=== PATIENT | female | born 1950 | race Caucasian/White ===

== ENCOUNTER → 2018-12-05 15:31 | Outpatient (CLI) | payer MEDICARE, OTHER, SELFPAY ==
[2018-12-05 18:08] LABS: Creatine Kinase 46 U/L (26-192)
== END ==
PROVIDERS: Visit Provider Emergency Medicine
DX: E78.5 Hyperlipidemia, unspecified (principal); E11.9 Type 2 diabetes mellitus without complications
CPT/HCPCS: 36415; 82550; 83036

== ENCOUNTER 2019-10-06 09:57 | Outpatient (RCR) | payer MEDICARE, OTHER, SELFPAY | END 2019-10-06 09:59 | disposition home or self-care (01) | LOC: PT 09:57 | DX: J44.1 Chronic obstructive pulmonary disease with (acute) exacerbation (principal); J96.21 Acute and chronic respiratory failure with hypoxia; Z72.0 Tobacco use | CPT/HCPCS: G0424 ==

== ENCOUNTER → 2020-06-14 07:57 | Outpatient (POV) | payer MEDICARE, OTHER, SELFPAY | PROVIDERS: PCP Emergency Medicine; Visit Provider Dermatology | DX: Z00.00 Encounter for general adult medical examination without abnormal findings (principal) ==

== ENCOUNTER → 2020-06-17 11:31 | Outpatient (CLI) | payer MEDICARE, OTHER, SELFPAY ==
[2020-06-17 11:42] LABS: Microscopic, Urine URINE MICROSCOPIC (MICROSCOPIC)
[2020-06-17 12:04] LABS: Basophils # 0.1 K/mm3 (0-0.2); Basophils % 0.9 % (0.1-2.0); Eosinophils # 0.2 K/mm3 (0.0-0.4); Eosinophils % 3.5 % (0.1-12.0); Hematocrit 44.9 % (37.0-47.0); Lymphocytes # 1.7 K/mm3 (0.7-4.5); Lymphocytes % 25.3 % (10-50); Mean Corpuscular HGB Conc 33.5 g/dL (31.8-35.4); Mean Corpuscular Hemoglobin 30.4 pg (27.0-31.2); Mean Corpuscular Volume 90.6 fl (81-99); Monocytes # 0.4 K/mm3 (0.1-1.0); Monocytes % 5.6 % (1.7-9.3); Neutrophils # 4.3 K/mm3 (1.8-7.8); Neutrophils % 64.7 % (37.0-80.0); Platelet Count 220 K/mm3 (142-424); Red Blood Count 4.95 M/mm3 (4.20-5.40); Red Cell Distribution Width 13.1 % (11.5-17.5); White Blood Count 6.6 K/mm3 (4.8-10.8)
[2020-06-17 12:41] LABS: Appearance,Urine CLEAR (Clear); Bilirubin,Urine Negative (Negative); Blood, Urine 1+ (Negative); Color,Urine YELLOW (Yellow); Glucose,Urine (UA) Negative (Negative); Ketones,Urine Negative (Negative); Leukocyte Esterase,Urine Negative (Negative); Nitrate,Urine Negative (Negative); Protein,Urine Negative (Negative); Urobilinogen,Urine 0.2 EU/dl (0.2)
[2020-06-17 13:07] LABS: Bacteria,Urine Trace /lpf
[2020-06-17 15:16] LABS: Albumin Level 4.3 g/dl (3.5-5.0); Anion Gap 10.6 mEq/L (5-15); Blood Urea Nitrogen 18 mg/dl (7-17); Calcium 9.8 mg/dl (8.4-10.2); Carbon Dioxide 33 mmol/L (22.0-30.0); Chloride 99 mmol/L (98-107); Estimated Glomerular Filt Rate 55 ml/min (>60); GFR (African American) 67 ML/MIN (>60); Glucose 143 mg/dl (74-100); Iron 102 ug/dL (37-170); Phosphorous 4.4 mg/dl (2.5-4.5); Potassium 4.6 mmoL/L (3.5-5.1); Sodium 138 mmol/L (136-145)
[2020-06-17 19:04] LABS: Creatinine,Urine Random 47 mg/dL (Not Estab.)
[2020-06-17 20:05] LABS: Total Iron Binding Capacity 386 ug/dL (265-497)
[2020-06-17 20:49] LABS: Ferritin 30.9 ng/ml (11.1-264)
== END ==
PROVIDERS: Visit Provider Student in an Organized Health Care Education/Training Program
DX: N28.9 Disorder of kidney and ureter, unspecified (principal); Z86.010 Personal history of colon polyps
CPT/HCPCS: 36415; 80069; 81001; 82043; 82570; 82728; 83540; 83550; 85025

== ENCOUNTER → 2020-07-12 08:32 | Outpatient (POV) | payer MEDICARE, OTHER, SELFPAY | PROVIDERS: Visit Provider Dermatology | DX: Z00.00 Encounter for general adult medical examination without abnormal findings (principal) ==

== ENCOUNTER → 2021-02-14 08:55 | Outpatient (POV) | payer MEDICARE, OTHER, SELFPAY | PROVIDERS: Visit Provider Dermatology | DX: Z00.00 Encounter for general adult medical examination without abnormal findings (principal) ==

== ENCOUNTER 2021-06-17 14:09 | Emergency (ER) | payer MEDICARE, OTHER, SELFPAY ==
[2021-06-17] VITALS (23 sets, daily range): BP systolic 000–119; BP diastolic 00–60; PULSE 0–83; RESP 0–18; TEMP -17.7–36.6; O2SAT 0–100; BMI 25.1
--- NOTE | 2021-06-17 13:47 | PC.NURSE ---
EMS was called out for an unwitnessed arrest at 1302 after patient's found patient not breathing. Patient initiated CPR at 1032. EMS reports they arrived at 1320 and initiated ACLS. EMS gave two rounds of epinephrine enroute and got ROSC at 1342. Patient arrived with [facility] with ROSC present. Patient has IO present in left tibia. Patient has 7.0 ET tube present with [address] De La Rosa at bedside. Pulse check at 1350 with no pulse palpable, CPR initiated at 1350. Epinephrine given at 1351, Bicarb given at 1352. Pulse check at 1354 and ROSC present. Another amp of bicarb given at 1402, another amp of epinephrine given at 1403. Epinephrine drip started at 1406 per MD verbal order. Dopamine drip started at 1414 per MD verbal order. MD left bedside at 1414
--- NOTE | 2021-06-17 14:12 | XR_ITS ---
PROCEDURE INFORMATION: Exam: XR Chest Exam date and time: 06/17/2021 2:12 PM Age: 70 years old Clinical indication: Device placement; Ett placement (vent status); Additional info: Tube placement TECHNIQUE: Imaging protocol: XR of the chest. Views: 1 view. COMPARISON: CR CXR CHEST(2 VIEWS-NOT PORTABLE) 11/30/2016 1:27 PM FINDINGS: Tubes, catheters and devices: Endotracheal tube is present with the tip approximately 5.6 cm above the level of the jose raul. Lungs: Interstitial prominence is noted bilaterally with atelectatic and/or early infiltrative changes in the right lung base. The lungs are hyperinflated, consistent with underlying small airways disease. Pleural spaces: There is no evidence of pneumothorax. Heart/Mediastinum: The heart demonstrates mild diffuse enlargement. Vasculature: The vasculature demonstrates diffuse moderate atherosclerotic calcification. Bones/joints: The thoracic spine demonstrates mild degenerative changes at multiple levels. IMPRESSION: 1. Endotracheal tube is present with the tip approximately 5.6 cm above the level of the jose raul. 2. Interstitial prominence is noted bilaterally with atelectatic and/or early infiltrative changes in the right lung base. 3. The lungs are hyperinflated, consistent with underlying small airways disease. 4. The heart demonstrates mild diffuse enlargement.
--- NOTE | 2021-06-17 14:23 | ECG_ITS ---
APPROVED REPORT Exam: Resting ECG HR:59 bpm ECG Measurements Heart Rate 59 AXES WY 80 P 260 QRSd 94 QRS 96 QT 508 T 145 QTc 502 Conclusion Unusual P axis and short WY, probable junctional rhythm Rightward axis ST & Marked T wave abnormality, consider anterolateral ischemia Prolonged QT Abnormal ECG Electronically signed by : Patricio Bear, 06/18/2021 08:24:47
[2021-06-17 14:24] LABS: ABG Base Excess -3.3 mmol/L (-2.4-2.3); ABG HCO3 25.6 mmhg (22.0-26.0); ABG Oxygen Saturation 100 % (90-100); ABG PO2 431.4 mmhg (80-100); ABG TCO2 27.9 mmhg (23-27)
[2021-06-17 14:28] LABS: Basophils # 0.1 K/mm3 (0-0.2); Basophils % 0.4 % (0.1-2.0); Eosinophils # 0.1 K/mm3 (0.0-0.4); Eosinophils % 0.4 % (0.1-12.0); Hematocrit 39.7 % (37.0-47.0); Hemoglobin 11.8 g/dL (12.2-16.2); Lymphocytes # 1.9 K/mm3 (0.7-4.5); Lymphocytes % 9.8 % (10-50); Mean Corpuscular HGB Conc 29.8 g/dL (31.8-35.4); Mean Corpuscular Hemoglobin 28.6 pg (27.0-31.2); Mean Corpuscular Volume 95.8 fl (81-99); Mean Platelet Volume 10.8 fl (7.4-10.4); Monocytes # 0.3 K/mm3 (0.1-1.0); Monocytes % 1.7 % (1.7-9.3); Neutrophils # 16.7 K/mm3 (1.8-7.8); Neutrophils % 87.7 % (37.0-80.0); Platelet Count 230 K/mm3 (142-424); Red Blood Count 4.14 M/mm3 (4.20-5.40); Red Cell Distribution Width 14.3 % (11.5-17.5)
[2021-06-17 14:29] LABS: MANUAL DIFFERENTIAL MANUAL DIFFERENTIAL (MANUAL DIFF)
--- NOTE | 2021-06-17 14:29 | [facility].EDCPR ---
ED Disposition Clinical Impression: Cardiac arrest Disposition: Condition on Discharge: Referrals: Provider,Referral, [Primary Care Provider] - - Critical Care Critical Care Time: Yes Attestation: On , the high probability of a clinically significant, sudden or life threatening deterioration of the following system(s) required my full and direct attention, intervention and personal management. The time I documented below is in addition to time spent performing reported procedures but includes the following listed in this critical care notation. Vital system(s) involved:: Circulatory Failure My critical care processes included: Assessment & monitoring of V/S, Initial and Re-exams, Data Review/Interpretation, Coordinating Care, Medication Orders and management, Documentation Probable Cause of : Cardiac arrest (CHF. COPD. acute NC) [facility] Code Documentation - Arrest Information Outside of Hospital The Code Document Section documentation for [id number] SouravKasandra Laura was populated with data that defaulted in from the mock up builder in the Code Assessment on f_Reg Service Date] to provide within this report, the status and treatment of the patient in the ED during a Code. This documentation will be supplemented with my direct findings within the body of the report. Medical Decision Making - Medical Records MR Comment: Patient was found unresponsive at 1302. EMS was called. started CPR. She had CPR for about 30 minutes. On arrival to the ED she has dilated pupils, she has no corneal response, no Babinski, no response to painful stimulation or any kind of stimulation. I discussed the situation with the family and they understood the situation. I called Dr. Martinez the hospitalist senior international tax manager and discussed the case with him, he thinks it was futile to admit her. The family agreed to wait till 6 PM if there is no response will extubate the patient. This scenario was discussed with the patient's and her son. At 5.40 pm. I repeated the neurological exam at the presence of her and son and the nurse. there was response to pain, stimulation, pupils are dilated and non responsive, corneal reflex is not active, babinsky is negative, explained that to the family, they wanted to withdraw the life support. Family signed the papers to withdraw life support. After prolonged discuscussion and answering all the questions. Life support withdrawed at 17.45. Patient at 18.11 due to cardiac arrest.acute NC. - Amador Inquiry Pt receiving controlled substance: No Amador was queried for this patient: No Vital Signs: 06/17/21 14:10 06/17/21 14:22 06/17/21 14:25 Temperature Temperature Source Pulse Rate 59 L 58 L Respiratory Rate 12 12 Blood Pressure 82/47 L 74/44 L Blood Pressure Mean 02 Sat by Pulse Oximetry 100 100 100 Oxygen Delivery Method Mechanical Ventilation Mechanical Ventilation Oxygen Flow Rate (LPM) 90 06/17/21 14:30 06/17/21 14:35 06/17/21 14:45 Temperature Temperature Source Pulse Rate 65 68 Respiratory Rate 16 16 16 Blood Pressure 77/41 L 82/45 L 90/48 L Blood Pressure Mean 57 02 Sat by Pulse Oximetry 99 94 L 92 L Oxygen Delivery Method Mechanical Ventilation Mechanical Ventilation Mechanical Ventilation Oxygen Flow Rate (LPM) 06/17/21 14:55 06/17/21 15:00 06/17/21 15:05 Temperature Temperature Source Pulse Rate 77 Respiratory Rate 12 13 17 Blood Pressure 87/46 L 90/49 L 89/51 L Blood Pressure Mean 02 Sat by Pulse Oximetry 94 L 92 L Oxygen Delivery Method Mechanical Ventilation Mechanical Ventilation Oxygen Flow Rate (LPM) 06/17/21 15:15 06/17/21 15:25 06/17/21 15:35 Temperature Temperature Source Pulse Rate 74 Respiratory Rate 18 18 Blood Pressure 87/47 L 97/50 L 99/52 L Blood Pressure Mean 63 02 Sat by Pulse Oximetry 91 L 92 L Oxygen Delivery Method Mechanical Ventilation Mec
[2021-06-17 14:30] LABS: Chloride 91 mmol/L (98-107); Potassium 5.2 mmoL/L (3.5-5.1); Sodium 132 mmol/L (136-145)
[2021-06-17 14:32] LABS: Blood Urea Nitrogen 30 mg/dl (7-17); Estimated Glomerular Filt Rate 40 ml/min (>60); GFR (African American) 49 ML/MIN (>60)
[2021-06-17 14:33] LABS: Alanine Aminotransferase 183 U/L (12-78); Albumin Level 3.5 g/dl (3.5-5.0); Albumin/Globulin Ratio 1.3 (1.1-1.8); Alkaline Phosphatase 132 U/L (38-126); Anion Gap 19.2 mEq/L (5-15); Aspartate Amino Transferase 234 U/L (14-36); Bilirubin,Total 0.9 mg/dl (0.2-1.3); Calcium 8.6 mg/dl (8.4-10.2); Carbon Dioxide 27 mmol/L (22.0-30.0); Globulin 2.6 g/dL (1.3-3.2); Total Protein,Serum 6.1 g/dl (6.3-8.2)
[2021-06-17 14:35] LABS: Activated Partial Thrombo Time 28.5 seconds (22.8-30.6); Glucose 483 mg/dl (74-100); Prothrombin Time 11.7 seconds (10.1-12.5)
[2021-06-17 14:37] LABS: INR 0.99 (0.9-1.1)
[2021-06-17 14:37] LABS: Allen's Test Patient Unable; Oxygen 90 %; PEEP 5; Source Left Brachial; Tidal Volume 400; Vent Rate 18
[2021-06-17 14:38] LABS: ABG PCO2 75.4 mmhg (35.0-45.0); ABG PH 7.15 mmol/L (7.35-7.45)
[2021-06-17 14:45] LABS: Troponin I 0.17 ng/ml (0.00-0.034)
[2021-06-17 14:48] LABS: Eosinophils % 1 % (0-3); Lymphocytes % 15 % (10-50); Monocytes % 5 % (2-9); Neutrophils % 79 % (42-76); Platelet Estimate Normal; RBC Morphology Normal; Total Cells Counted 100
--- NOTE | 2021-06-17 15:33 | PC.NURSE ---
DNR paper signed and filed on patient. DNR signed by patient's hsuband
--- NOTE | 2021-06-17 15:35 | PC.NURSE ---
Dr. Martinez paged for patient consult at this time
--- NOTE | 2021-06-17 15:40 | PC.NURSE ---
Patient family notified that ER staff initiating admission process
[2021-06-17 15:52] LABS: ABG Base Excess -1.4 mmol/L (-2.4-2.3); ABG HCO3 26.4 mmhg (22.0-26.0); ABG Oxygen Saturation 92 % (90-100); ABG PH 7.21 mmol/L (7.35-7.45); ABG PO2 72.8 mmhg (80-100); ABG TCO2 28.5 mmhg (23-27)
[2021-06-17 15:54] LABS: Allen's Test Non Applicable; Oxygen 50 %; PEEP 5; Source Left Brachial; Tidal Volume 400; Vent Rate 18
[2021-06-17 15:55] LABS: ABG PCO2 67.6 mmhg (35.0-45.0)
--- NOTE | 2021-06-17 16:00 | PC.NURSE ---
Dr. De La Rosa stated, Dr. Martinez wants us to do a repeat neuro assessment at 1800. Family wants to extubate patient after repeat neuro check at 1800 if the patient still does not react to neuro stimuli. Family at bedside still remains agreeable.
--- NOTE | 2021-06-17 16:12 | XR_ITS ---
PROCEDURE INFORMATION: Exam: XR Chest Exam date and time: 06/17/2021 4:12 PM Age: 70 years old Clinical indication: Device placement; Ng tube; Additional info: Ng tube confirmation TECHNIQUE: Imaging protocol: XR of the chest. Views: 1 view. COMPARISON: CR XR CHEST PORTABLE 06/17/2021 2:06 PM FINDINGS: Tubes, catheters and devices: Nasogastric tube is in place with the tip overlying the stomach. Endotracheal tube is in place. Lungs: Interstitial prominence is again noted bilaterally with atelectatic and/or infiltrative changes noted within the lung bases. The lungs are hyperinflated, consistent with underlying small airways disease. Pleural spaces: Unremarkable. No pleural effusion. No pneumothorax. Heart/Mediastinum: The heart demonstrates mild diffuse enlargement. Vasculature: The vasculature demonstrates diffuse mild atherosclerotic calcification. Bones/joints: The thoracic spine demonstrates mild degenerative changes at multiple levels. IMPRESSION: 1. Nasogastric tube is in place with the tip overlying the stomach. 2. Interstitial prominence is again noted bilaterally with atelectatic and/or infiltrative changes noted within the lung bases. 3. The lungs are hyperinflated, consistent with underlying small airways disease.
--- NOTE | 2021-06-17 16:17 | PC.NURSE ---
radiology made aware of chest xray to confirm NG tube
--- NOTE | 2021-06-17 16:24 | PC.NURSE ---
Radiology at bedside at this time to take repeat chest xray for NG tube olacement verification
--- NOTE | 2021-06-17 16:27 | PC.NURSE ---
Called [facility] and spoke with Indira initially, then finished referral with Alexis.
--- NOTE | 2021-06-17 16:44 | PC.NURSE ---
Alexis called back and stated notify [facility] again at cardiac time of to initiate potential harvesting process.
--- NOTE | 2021-06-17 16:47 | PC.NURSE ---
Patient GCS remains at 3 at this time
--- NOTE | 2021-06-17 17:31 | PC.NURSE ---
MD at bedside with Reymundo RATLIFF to witness neuro assessment with family at bedside. Patient family wants to extubate patient.
--- NOTE | 2021-06-17 17:40 | PC.NURSE ---
Patient signed refusal of treatment and further test at this time
--- NOTE | 2021-06-17 17:45 | PC.NURSE ---
Patient extubated at this time. 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 Patient family at bedside
--- NOTE | 2021-06-17 18:11 | PC.NURSE ---
ER pronounced time of at 1810. Rhythm strip printed
--- NOTE | 2021-06-17 18:26 | PC.NURSE ---
Hallie Guevara from [facility] released body at this time.
--- NOTE | 2021-06-17 18:41 | PC.NURSE ---
Spoke with Britney at [facility]. Linen Room Houseperson Toñito Guillen notified by Britney, Toñito Guillen is supposed to call Reymundo RATLIFF back
--- NOTE | 2021-06-17 18:50 | PC.NURSE ---
Joaquin Guillen, clay miller notified and released patient body. [facility] notified per family request
== END 2021-06-17 19:31 | disposition expired ==
PROVIDERS: Emergency Provider Internal Medicine
DX: I46.9 Cardiac arrest, cause unspecified (principal); J44.9 Chronic obstructive pulmonary disease, unspecified; I25.10 Atherosclerotic heart disease of native coronary artery without angina pectoris; E11.65 Type 2 diabetes mellitus with hyperglycemia; E87.5 Hyperkalemia; F17.210 Nicotine dependence, cigarettes, uncomplicated; Z88.0 Allergy status to penicillin; Z88.5 Allergy status to narcotic agent; Z79.899 Other long term (current) drug therapy
CPT/HCPCS: 71045; 80053; 82803; 84484; 85007; 85025; 85610; 85730; 87070; 87077; 87186; 87205; 93005; 96365; 96367; 96375; 96376; 99285